=== PATIENT | female | born 1945 | race Caucasian/White ===

== ENCOUNTER 2018-03-24 06:44 | Day surgery (SDC) | payer OTHER ==
[2018-03-22 13:59] VITALS: BMI 24.9
[~2018-03-24 06:44] MED LIST: ACETAMINOPHEN 325 MG TABLET (FP) PO PRN; BSS (NA/CA/MG/K) BALANCED SALT SOLUTION OPHTH SOLN 15 ML BOTTLE OD ONE; CHONDROITIN SU A/HYALUR SOD 1 KIT IO ONE; EPINEPHrine/PF 1 MG/1 ML (1:1,000) AMPULE SQ ONE; LIDOCAINE HCL 1% PRESERVATIVE FREE - 30ML VIAL IO ONE; POVIDONE-IODINE 5% OPHTHALMIC PREP 30 ML SOLUTION OD ONE; TETRACAINE 0.5% OPHTH SOLN 2 ML BOTTLE OD ONE
[2018-03-24] MEDS ORDERED: CHONDROITIN SU A/HYALUR SOD 1 KIT ONE (07:09)
[2018-03-24] MEDS ORDERED: OFLOXACIN 0.3% OPHTHALMIC SOLUTION 5 ML BOTTLE ONE (07:17)
[2018-03-24] MEDS ORDERED: CYCLOPENTOLATE HCL 1% OPHTH SOLN 2 ML BOTTLE ONE (07:17)
[2018-03-24] MEDS ORDERED: KETOROLAC TROMETHAMINE 0.5% EYE DROP 1 DROP DROPS ONE (07:18)
[2018-03-24] MEDS ORDERED: TROPICAMIDE 1% OPHTH SOLN 15 ML BOTTLE ONE (07:18)
[2018-03-24] MEDS ORDERED: LIDOCAINE HCL/PF 1% SDV 5ML VIAL ONE (07:23)
[2018-03-24] MEDS ORDERED: EPINEPHrine/PF 1 MG/1 ML (1:1,000) AMPULE ONE (07:23)
[2018-03-24] MEDS ORDERED: BSS (NA/CA/MG/K) BALANCED SALT SOLUTION OPHTH SOLN 15 ML BOTTLE ONE (07:24)
[2018-03-24] MEDS: CYCLOPENTOLATE HCL 1% OPHTH SOLN 2 ML BOTTLE OP SCH ×3 (07:29→07:53)
[2018-03-24] MEDS: KETOROLAC TROMETHAMINE 0.5% EYE DROP 1 DROP DROPS OP SCH ×3 (07:30→07:53)
[2018-03-24] MEDS: OFLOXACIN 0.3% OPHTHALMIC SOLUTION 5 ML BOTTLE OP SCH ×3 (07:30→07:53)
[2018-03-24] MEDS: PHENYLEPHRINE 2.5% OPHTH SOLN 15 ML BOTTLE OP SCH ×3 (07:30→07:54)
[2018-03-24] MEDS: TROPICAMIDE 1% OPHTH SOLN 15 ML BOTTLE OP SCH ×3 (07:31→07:54)
[2018-03-24] MEDS ORDERED: TETRACAINE 0.5% OPHTH SOLN 2 ML BOTTLE ONE (07:56)
[2018-03-24] MEDS ORDERED: MIDAZOLAM HCL 2 MG/2 ML SINGLE DOSE VIAL ONE (08:42)
[2018-03-24] MEDS ORDERED: TETRACAINE 0.5% OPHTH SOLN 2 ML BOTTLE OD ONE (09:06)
[2018-03-24] MEDS ORDERED: POVIDONE-IODINE 5% OPHTHALMIC PREP 30 ML SOLUTION OD ONE (09:07)
[2018-03-24] MEDS ORDERED: BSS (NA/CA/MG/K) BALANCED SALT SOLUTION OPHTH SOLN 15 ML BOTTLE OD ONE (09:17)
[2018-03-24] MEDS ORDERED: CHONDROITIN SU A/HYALUR SOD 1 KIT IO ONE (09:17)
[2018-03-24] MEDS ORDERED: LIDOCAINE HCL 1% PRESERVATIVE FREE - 30ML VIAL IO ONE (09:17)
[2018-03-24] MEDS ORDERED: EPINEPHrine/PF 1 MG/1 ML (1:1,000) AMPULE SQ ONE (09:26)
[2018-03-24 09:53] VITALS: TEMP 97.1
--- NOTE | 2018-03-24 10:06 | SPEC ---
DATE OF OPERATION: 03/24/2018 PREOPERATIVE DIAGNOSIS: Cataract, right eye. POSTOPERATIVE DIAGNOSIS: Cataract, right eye. PROCEDURE: Phacoemulsification of right cataract with posterior chamber intraocular lens implantation. The lens used SN60WF, 24.0 diopter power, serial No. [id number]. SURGEON: Ben Wilkinson M.D. ANESTHESIA: Topical MAC. COMPLICATIONS: None. DESCRIPTION OF PROCEDURE: The patient was brought to the operating room and correctly identified along with the operative site and the correct intraocular lens lopez. The patient was then prepped and draped in the usual sterile fashion including 5% Betadine solution in the conjunctival sac and an eyelid drape. An eyelid speculum was then placed in the eye. A paracentesis port was created and approximately 0.5 mL of preservative free Lidocaine was then injected into the eye. Viscoelastic was then injected to inflate the anterior chamber. A temporal clear corneal wound was created. A continuous circular capsulorrhexis was performed. The nucleus was then hydrodissected with BSS and removed with phacoemulsification. The remaining cortical material was irrigated and aspirated. Viscoelastic was injected to inflate the capsular bag and the intraocular lens was then implanted into the capsular bag. The remaining Viscoelastic was irrigated and aspirated from the eye. The IOL was noted to be well centered and completely covered by the anterior capsulorrhexis. Topical vancomycin was placed and the eye patched and shielded. All wounds were tested and found to be watertight. No suture was placed. The eye was then shielded. The patient was then discharged from the operating room in stable condition. BEN WILKINSON M.D. [id number]
[2018-03-24 11:44] VITALS: BP 127/72; PULSE 66
== END 2018-03-24 11:35 | disposition home or self-care (01) ==
LOC: JASU-SURG 06:44
PROVIDERS: ATTEND Ophthalmology
PROC: 08RK3JZ Replacement of Left Lens with Synthetic Substitute, Percutaneous Approach (ICD-10-PCS; principal; 2018-03-24 09:00)
DX: H26.9 Unspecified cataract (principal)

== ENCOUNTER 2018-04-07 07:05 | Day surgery (SDC) | payer OTHER ==
[2018-04-02 15:47] VITALS: BMI 24.2
[~2018-04-07 07:05] MED LIST changes: -BSS (NA/CA/MG/K) BALANCED SALT SOLUTION OPHTH SOLN 15 ML BOTTLE OD ONE; -CHONDROITIN SU A/HYALUR SOD 1 KIT IO ONE; -EPINEPHrine/PF 1 MG/1 ML (1:1,000) AMPULE SQ ONE; -LIDOCAINE HCL 1% PRESERVATIVE FREE - 30ML VIAL IO ONE; -POVIDONE-IODINE 5% OPHTHALMIC PREP 30 ML SOLUTION OD ONE; -TETRACAINE 0.5% OPHTH SOLN 2 ML BOTTLE OD ONE; +TROPICAMIDE 1% OPHTH SOLN 15 ML BOTTLE OP SCH
[2018-04-07] MEDS ORDERED: CHONDROITIN SU A/HYALUR SOD 1 KIT ONE (07:06)
[2018-04-07] MEDS ORDERED: EPINEPHrine/PF 1 MG/1 ML (1:1,000) AMPULE ONE (07:15)
[2018-04-07] MEDS ORDERED: LIDOCAINE HCL/PF 1% SDV 5ML VIAL ONE (07:16)
[2018-04-07] MEDS ORDERED: TETRACAINE 0.5% OPHTH SOLN 2 ML BOTTLE ONE (07:16)
[2018-04-07] MEDS ORDERED: OFLOXACIN 0.3% OPHTHALMIC SOLUTION 5 ML BOTTLE ONE (07:24)
[2018-04-07] MEDS ORDERED: KETOROLAC TROMETHAMINE 0.5% EYE DROP 1 DROP DROPS ONE (07:24)
[2018-04-07] MEDS ORDERED: CYCLOPENTOLATE HCL 1% OPHTH SOLN 2 ML BOTTLE ONE (07:24)
[2018-04-07] MEDS: KETOROLAC TROMETHAMINE 0.5% EYE DROP 1 DROP DROPS OP SCH ×3 (07:39→08:01)
[2018-04-07] MEDS: PHENYLEPHRINE 2.5% OPHTH SOLN 15 ML BOTTLE OP SCH ×3 (07:39→08:02)
[2018-04-07] MEDS: OFLOXACIN 0.3% OPHTHALMIC SOLUTION 5 ML BOTTLE OP SCH ×3 (07:39→08:01)
[2018-04-07] MEDS: TROPICAMIDE 0.5% OPHTHALMIC SOLN 15 ML BOTTLE ONE ×3 (07:39→08:02)
[2018-04-07] MEDS: CYCLOPENTOLATE HCL 1% OPHTH SOLN 2 ML BOTTLE OP SCH ×3 (07:39→08:01)
[2018-04-07] MEDS ORDERED: MIDAZOLAM HCL 2 MG/2 ML SINGLE DOSE VIAL ONE (08:42)
[2018-04-07] MEDS ORDERED: TETRACAINE 0.5% OPHTH SOLN 2 ML BOTTLE OS ONE (09:11)
[2018-04-07] MEDS ORDERED: POVIDONE-IODINE 5% OPHTHALMIC PREP 30 ML SOLUTION OS ONE (09:12)
[2018-04-07] MEDS ORDERED: CHONDROITIN SU A/HYALUR SOD 1 KIT IO ONE (09:20)
[2018-04-07] MEDS ORDERED: BSS (NA/CA/MG/K) BALANCED SALT SOLUTION OPHTH SOLN 15 ML BOTTLE OS ONE (09:20)
[2018-04-07] MEDS ORDERED: LIDOCAINE HCL 1% PRESERVATIVE FREE - 30ML VIAL IO ONE (09:20)
[2018-04-07] MEDS ORDERED: EPINEPHrine/PF 1 MG/1 ML (1:1,000) AMPULE SQ ONE (09:25)
--- NOTE | 2018-04-07 10:40 | SPEC ---
DATE OF OPERATION: 04/07/2018 PREOPERATIVE DIAGNOSIS: Cataract, left eye. POSTOPERATIVE DIAGNOSIS: Cataract, left eye. PROCEDURE: Phacoemulsification of left cataract with posterior chamber intraocular lens implantation. Lens used SN60WF, 23.5 diopter power, serial No. [id number]. SURGEON: Ben Wilkinson M.D. ANESTHESIA: Topical MAC. COMPLICATIONS: None. DESCRIPTION OF PROCEDURE: The patient was brought to the operating room and correctly identified along with the operative site and the correct intraocular lens lopez. The patient was then prepped and draped in the usual sterile fashion including 5% Betadine solution in the conjunctival sac and an eyelid drape. An eyelid speculum was then placed in the eye. A paracentesis port was created and approximately 0.5 mL of preservative free Lidocaine was then injected into the eye. Viscoelastic was then injected to inflate the anterior chamber. A temporal clear corneal wound was created. A continuous circular capsulorrhexis was performed. The nucleus was then hydrodissected with BSS and removed with phacoemulsification. The remaining cortical material was irrigated and aspirated. Viscoelastic was injected to inflate the capsular bag and the intraocular lens was then implanted into the capsular bag. The remaining Viscoelastic was irrigated and aspirated from the eye. The IOL was noted to be well centered and completely covered by the anterior capsulorrhexis. Topical vancomycin was placed and the eye patched and shielded. All wounds were tested and found to be watertight. No suture was placed. The eye was then shielded. The patient was then discharged from the operating room in stable condition. BEN WILKINSON M.D. [id number]
[2018-04-07 10:47] VITALS: BP 137/84; PULSE 60; TEMP 97.6
== END 2018-04-07 10:47 | disposition home or self-care (01) ==
LOC: JASU-SURG 07:05
PROVIDERS: ATTEND Ophthalmology
PROC: 08RK3JZ Replacement of Left Lens with Synthetic Substitute, Percutaneous Approach (ICD-10-PCS; principal; 2018-04-07 09:00)
DX: H26.9 Unspecified cataract (principal)